=== PATIENT | female | born 1970 | race American Indian/Alaskan Native ===

== ENCOUNTER 2018-01-14 14:05 | Outpatient (CLI) | payer OTHER ==
--- NOTE | 2018-01-15 12:16 | Magnetic Resonance Report ---
MRI LUMBAR SPINE WITHOUT AND WITH CONTRAST: 01/14/18 CLINICAL: Back pain. TECHNIQUE: Sagittal and axial T1 and T2, sagittal STIR and sagittal and axial postcontrast T1 fat sat sequences a 1.5 Joanna magnet. 15.0 cc of Multihance was injected intravenously for the contrast portion of the exam and consent was obtained prior to the administration of the contrast. FINDINGS: Normal vertebral body height, alignment and disc spaces. Normal marrow signal. Decreased T2 disc signal at L3. Rest of the discs have normal signal. The conus medullaris is normal and terminates at T12-L1. L1-2: Intact. L2-3: Intact. L3-4: A small broad-based left foraminal disc protrusion along with a small osteophyte producing mild left neural foraminal stenosis. Mild facet hypertrophy contributes to the neural foraminal narrowing. L4-5: Intact. L5-S1: Intact. No mass or enhancing lesion. No abnormal enhancement. IMPRESSION: L3-4 degenerative disc disease with a small broad-based left foraminal disc protrusion and osteophyte producing mild left neural foraminal stenosis. The rest of the exam is normal.
== END 2018-01-14 14:06 | disposition home or self-care (01) ==
LOC: MRI 14:05
PROVIDERS: ATTEND General Practice
DX: M51.36 Other intervertebral disc degeneration, lumbar region (principal); M25.78 Osteophyte, vertebrae; M51.26 Other intervertebral disc displacement, lumbar region; F17.210 Nicotine dependence, cigarettes, uncomplicated; Z90.710 Acquired absence of both cervix and uterus
CPT/HCPCS: 72158; A9577